=== PATIENT | female | born 1990 | race Caucasian/White ===

== ENCOUNTER 2017-08-24 22:45 | Emergency (ER) | payer OTHER ==
[~2017-08-24 22:45] MED LIST: CHLORPROMAZINE25 M2 PO; CHLORPROMAZINE50 M2; CHLORPROMAZINE50 M2 PO; DAILY MULTIPLE1 EACH PO; DIFLUCAN150 M1 PO; EMERGEN-C 1,01000 MG PO; MIRENA1 EACH; NICORELIEF2 MG PO; NUVARING VAGIN1 EACH VG; OLANZAPINE5 M2 PO; OXCARBAZEPINE300 M1; SERTRALINE HCL100 MG PO; SERTRALINE HCL50 MG PO; TRAZODONE HCL50 M1 PO; ZOLOFT100 M1 PO; ZOLOFT25 M1 PO
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
[2017-08-24] MEDS ORDERED: VICODIN 5-3001 EACH PO ×2 (23:39→23:48)
[2017-08-24 23:53] VITALS: BP 119/67
== END 2017-08-24 23:54 ==
LOC: ERH 22:45
DX: S90.31XA Contusion of right foot, initial encounter (principal); W20.8XXA Other cause of strike by thrown, projected or falling object, initial encounter; Y92.9 Unspecified place or not applicable; Y93.89 Activity, other specified
CPT/HCPCS: 73610-RT; 73630-RT

== ENCOUNTER 2017-08-27 17:37 | Inpatient (IN) | payer OTHER ==
[~2017-08-27] VITALS: Ht 157.5 cm; Wt 48.3 kg
[~2017-08-27 17:37] MED LIST changes: +VICODIN 5-3001 EACH PO
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
[2017-08-27 19:38] LABS: ABSOLUTE BASOPHIL COUNT 0 /CUMM (0.0-0.2); ABSOLUTE EOSINOPHIL COUNT 0 /CUMM (0.0-0.7); ABSOLUTE GRANULOCYTE CT 4.9 /CUMM (1.4-6.5); ABSOLUTE LYMPH COUNT 2.3 /CUMM (1.2-3.4); ABSOLUTE MONOCYTE COUNT 0.4 /CUMM (0.10-0.60); BASOPHIL % 0.4 % (0.0-2.0); EOSINOPHIL % 0.1 % (0-5); GRANULOCYTE % 63.9 % (42.2-75.2); HEMATOCRIT 34.8 % (37-47); MEAN CORPUSCULAR HGB 32.8 PG (27.0-31.0); MEAN CORPUSCULAR HGB CONC 34.8 G/DL (33.0-37.0); MEAN PLATELET VOLUME 7.2 FL (7.4-10.4); PLATELET COUNT 260 /CUMM (130-400); RBC DISTRIBUTION WIDTH 12.6 % (11.5-14.5); WHITE BLOOD CELL COUNT 7.7 /CUMM (4.8-10.8)
[2017-08-27] MEDS ORDERED: CHLORPROMAZINE25 M2 PO ×2 (20:00)
[2017-08-27] MEDS ORDERED: CHLORPROMAZINE50 M2 PO (20:03)
--- NOTE | 2017-08-27 21:14 | ED PSYCH CRISIS CONSULTATION ---
Crisis Consult Basic Assessment Date of Consult: 08/27/17 Responsible Person/Accompanied By: Patient arrived herself Insurance Authorization: Insurance #1: Insurance name: MANAV BARRIOS Phone number: Policy number: [id number] Group number: Authorization number: ED Provider: Patient's ED Provider: Moose Long MD Primary Care Physician: Patient's PCP: Patient Has No Primary Care Dr PCP's Phone Number: Current Psychiatrist: Gopi Chief Complaint: Psychiatric Related Complaint Patient's Quote: "I havent been able to sit still....Zoloft isnt working anymore " Present Illness: Patient is a 27 year old female that walked in to the emergency department from home. On arrival, patient states she is manic. Patient was recently evaluated by crisis earlier this month with final disposition of inpatient transfer admission to [facility]. Patient reports she was only inpatient for 1 day and signed herself out stating "I didnt want to be there." Also of note, patient reports substance use two days ago with use of acid and MDMA. Patient's urine toxicology screening is positive for marijuana. Patient denies alcohol use and her blood alcohol level is zero. Patient resides in an apartment with her boyfriend. Patient states mood as "okay". Patient is alert, oriented and endorses recent "rapid cycling" of her mood. Patient states "I havent been able to sit still...I need to fix myself...not be crazy depressed...not be crazy manic....the Zoloft isnt working anymore....I've been recklessly spending money....taking drugs I dont do." When asked about symptoms of psychosis ( delusions, paranoia, hallucinations), patient states she has experienced delusion of influencing weather stating "making hurricanes". She denies auditory and visual hallucinations. Patient asserts she believes her psychotropic medication needs changed. Patient believes the thorazine medication is effective but she wants to change from Zoloft SSRI. A Terrell Suicide Severity Rating Scale (C.-S.S.R.S.) was completed. Patient states "I'm trying really hard not to" when asked about suicidal thoughts. Patient indicates she has experienced suicidal thoughts in past week but denies suicidal intent or planning. Patient admits to making suicidal statement with a threat to consume several thorazine pills. Patient is assessed with risk factors / clinical status concerns of past history of lifetime suicide attempts ( overdose on aspirin in 2015), recent suicidal ideation in past week, substance abuse, highly impulsive behavior, severe anxiety, hopelessness. Protective factors identified include supportive family, identified reason for living, fear of , and belief in spirituality. Patient has history of psychiatric treatment at [facility], with an inpatient admission in December 2016. Patient has longstanding diagnosis of schizoaffective disorder since age 17 with multiple psychiatric inpatient admissions. Patient's mother has reported in past evaluations that patient has a history of cutting and suicide attempts by pill overdose with multiple past inpatient admissions. Historical reports indicates history of anxiety, mood lability, disorganized thought, paranoia, derogatory self-thoughts, and polysubstance abuse. Patient has responded well to Thorazine medication in the past and is well versed in adjusting dosage of this medication on a PRN basis based on her symptoms. Patient's outpatient mental health treatment provider is [facility]. Patient supposedly has a referral to begin [facility] IOP program. Patient sees psychiatric nurse practitioner Lashaun Willard - Patient was formerly treated at [facility] health. Patient has in the past attempted dietary changes to improve psychiatric symptoms (anti-histamine diet & avoidance of eggs, gluten, soy, yeast.) Patient is medically cleared by attending physician Dr. Pascual. She denies any medical concerns currently other than a foot injury for which she has a cast. 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 Patient has past legal history with a charge of driving under the influence per past reports. Patient's Address: [address] [place] [address] Other Phone Number: Who Do You Live With? Other (see notes) (Significant other) Family/Informants Interviewed: cannot be obtained due to (Could not reach) Allergies - Coded Allergies: aripiprazole (From ABILIFY) (Intermediate, DYSTONIC REACTION 03/26/17) Penicillins (DOESN'T REMEMBER 03/26/17) Yeast (BAD STOMACH ACHES AND MOOD SWINGS GO BAD 03/26/17) egg (STOMACH ACHES AND MOOD SWINGS GO BAD 03/26/17) haloperidol (From HALDOL) (DYSTONIC REACTION 03/26/17) soy (BAD STOMACH ACHE AND MOOD SWINGS GO BAD 03/26/17) wheat (BAD STOMACH ACHES AND MOOD SWINGS GO BAD 03/26/17) Current Medications - Scheduled Medications Chlorpromazine HCl 50 MG TABLET 1 TAB PO Q6H MENTAL HEALTH (Reported) Entered as Reported by Nuvia Yuan on 08/27/172002 Etonogestrel/Ethinyl Estradiol (Nuvaring Vaginal Ring) 0.12 MG -0.015 MG/24 HR VAG.RING 1 EACH VG Q30D CONTROL #1 (Reported) Entered as Reported by Lacey Cadet on 06/08/17 2322 Sertraline HCl 100 MG TABLET 1 TAB PO DAILY DEPRESSION #30 (Reported) Entered as Reported by Lacey Cadet on 06/08/17 2321 Scheduled PRN Medications Chlorpromazine HCl 25 MG TABLET 1 TAB PO AD PRN MENTAL HEALTH (Reported) Entered as Reported by Nuvia Yuan on 08/27/171999 Hydrocodone/Acetaminophen (Vicodin 5-300 MG Tablet) 5 MG-300 MG TABLET 1 TAB PO Q6P PRN PAIN #16 TAB Prescribed by Solitario Feldman MD on 08/24/17 Laboratory Results: Laboratory Tests 08/27/171924: Anion Gap 10, Estimated GFR > 60, BUN/Creatinine Ratio 12.9, Glucose 85, Calcium 9.0, Total Bilirubin 0.1 L, AST 17, ALT 21, Alkaline Phosphatase 32, Total Protein 6.1 L, Albumin 3.8, Globulin 2.3, Albumin/Globulin Ratio 1.7, CBC w Diff NO MAN DIFF REQ, RBC 3.70 L, MCV 94.0, MCH 32.8 H, MCHC 34.8, RDW 12.6, MPV 7.2 L, Gran % 63.9, Lymphocytes % 30.1, Monocytes % 5.5, Eosinophils % 0.1, Basophils % 0.4, Absolute Granulocytes 4.9, Absolute Lymphocytes 2.3, Absolute Monocytes 0.4, Absolute Eosinophils 0, Absolute Basophils 0, Serum Alcohol < 10.0 08/27/17 1803: Urine Opiates Screen 645, Methadone Screen < 40, Barbiturate Screen < 60, Ur Phencyclidine Scrn < 6.00, Amphetamines Screen 128, U Benzodiazepines Scrn < 85, Urine Cocaine Screen < 50, Urine Cannabis Screen > 80.00 H Past History Past Medical History Neurological: NONE EENT: NONE Cardiovascular: NONE Respiratory: NONE Gastrointestinal: NONE Hepatic: NONE Renal: NONE Musculoskeletal: NONE Psychiatric: bipolar disease, schizo affective disorder Endocrine: NONE Blood Disorders: NONE Cancer(s): NONE 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 Physical Limitations (Interventions): None assessed Psychiatric Treatment History Psych Treatment Psychiatric Treatment Yes Inpatient Treatment Yes Outpatient Treatment Yes Location of Treatment [facility] ED, [facility], [place] [facility] for Treatment Schizoaffective disorder Dates of Treatment Longstanding treatment Response to Treatment Patient responds well generally to treatment. Response is complicated by polysubstance abuse. Diagnosis by History: Schizoaffective disorder Bipolar disorder Borderline personality disorder Substance Use/Abuse History Drug Use/Abuse 1 Substances Used/Abused Yes Substance Used/Abused Marijuana First Use Unknown Last Used Today How much used/taken Patient specified "2 grams per week" How often Daily use For how long Several years Drug Use/Abuse 2 Substances Used/Abused Yes Substance Used/Abused Hallucinogens ("Acid") Last Used 2 days ago Drug Use/Abuse 3 Substances Used/Abused Yes Substance Used/Abused Other (list in comments) (MDMA) Last Used 2 days ago Substance Abuse Treatment Substance Abuse Treatment Past Substance Abuse [place] No Current Mental Status Mental Status Orientation: Person, Place, Situation Affect: Variable Speech: Soft Neuro-vegetative: Energy Increased, Sleep Disturbance Appearance Appearance- Dress/Hygiene: Patient dressed in hospital attire. No remarkable features observed Behaviors Thought Process: WNL Thought Content: Delusions Memory: WNL Insight: Poor SI/HI Risk Assessment Past Suicidal Ideation/Attempts Yes (Attempt in 2014) Current Suicidal Ideation/Att No (Recent SI, 2 days ago) Past Homicidal Ideation/Att: No Current Homicidal Ideation/Attempts No Degree of Intent: None Gravely Disabled: Poor Impulse Control, Poor Judgment Risk Factors: access to lethal means, high anxiety/distress, history of suicide atmpts, SA/MH hospitalized, substance abuse Lethality Ratin PTSD Checklist PTSD Done? patient declined ED Management Sitter: Yes Restraints: No (Pt. 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 Tiana Fierro MD Date Disposition Established: 08/27/17 Time Disposition Established: 2129 Plan for Disposition - Modality: Inpatient Psychiatry Facility: [facility] Rationale for Disposition: Crisis evaluation reviewed with Dr. Fierro. Patient will be admitted for inpatient psychiatry to achieve psychiatric stabilization due to presentation of mood dysregulation, recent suicidality, and impulsivity. Type of IP Admission: Voluntary Referrals Patient Has No Primary Care Dr (PCP/Family)
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
[2017-08-27 22:23] VITALS: BP 100/61
[2017-08-28 07:56] VITALS: BP 114/78
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
--- NOTE | 2017-08-28 15:53 | SOCIAL WORKER PROG NOTE PSYCH ---
Social Work Progress Note Progress Note Nicole approached me this afternoon looking to talk about leaving. I told her I would like to sit down with her to talk in a little while, but couldn't meet that minute. She went on to say that she didn't want to stay here and work with the doctor here. She asked if she is voluntary why she couldn't just sign out. I told her it didn't work that way and we could discuss it further in a little while. I did tell her that she could sign a 3 day paper to terminate voluntary status and I could do that with her later. She apparently ended up signing a 3 day paper with nursing a short time later. I attempted to meet with her around 3:15pm. She was in bed and sleeping. She wouldn't wake up when prompted. Nursing informed me that she needed medication earlier to calm down as she was getting agitated.
[2017-08-28 16:12] VITALS: BP 97/52
[2017-08-28 19:28] VITALS: BP 112/74
[2017-08-28 22:36] VITALS: BP 121/88
[2017-08-29 07:54] VITALS: BP 100/71
--- NOTE | 2017-08-29 09:55 | CP SOUTH PROGRESS NOTE PSYCH ---
Psych (Inpt) Progress Note Progress Note Laboratory Tests 08/29 0642 Chemistry TSH &T3 &Free T4 Intrp (0.270 - 4.20 uIU/mL) 2.600 Vital Signs Date Time Temp Pulse B/P 08/29 1241 90 125/84 08/29 0754 98.1 96 100/71 08/28 2236 101 121/88 08/28 1928 98.5 84 112/74 Mental Status Examination Patient mobilizes with a walker because of the cast on her leg. Appearance: Older than his stated age. Attitude towards examiner: Hostile, Normal psychomotor activity No abnormal or bizarre behaviors Talkative with mild pressure Labile and irritable, She says she is manic, denied thoughts of suicide today, denied homicidal ideation Denied hallucinations, denied feeling paranoid, there were no delusions during this interview. There was concern about the grandiose delusions in the emergency department. The patient seemed to be coherent and goal directed had a speech, Poor insight, Poor judgment, Alert and oriented to time, place, and person. Did not seem to have difficulty with information processing, did not seem to have difficulties with short-term memory. 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 refuses to take it, claimed it made her suicidal when she was a teenager) Start Geodon 40 mg daily starting today Continue Zoloft 50 mg daily Continue Thorazine 50 mg 4 times daily and as needed doses for agitation and Continue as needed Ativan 1 mg Group therapy, milieu therapy, and activities therapy. Reduce as needed's of Ativan to 1 mg instead of 2 mg Biopsychosocial assessment, collateral information, and aftercare planning by social work Group therapy, milieu therapy, and activities therapy.
[2017-08-29 12:41] VITALS: BP 125/84
[2017-08-29 16:38] VITALS: BP 107/76
[2017-08-29 20:26] VITALS: BP 106/74
[2017-08-29 22:27] VITALS: BP 98/67
[2017-08-30 07:13] VITALS: BP 115/57
[2017-08-30 07:34] VITALS: BP 106/68
--- NOTE | 2017-08-30 08:17 | CP SOUTH PROGRESS NOTE PSYCH ---
Psych (Inpt) Progress Note Progress Note Vital Signs: Date Time Temp Pulse Resp B/P 08/30 0734 97.9 86 106/68 08/30 0713 92 115/57 08/29 2231 97.1 82 18 98/67 Mental Status Examination: Today, the patient was not hostile, she showed normal psychomotor activity She reported that the as needed doses of Ativan or making her too sleepy and wanted a reduction to 0.5 mg as needed There were no abnormal or bizarre behaviors She was not talkative, and there was no pressure in her speech today Today, she claims that she is feeling both manic and depressed at the same time. Continues to deny thoughts of suicide and continues to deny homicidal ideation She denied hallucinations, denied feeling paranoid, there were no delusions during this interview. I did not crop picker on any psychotic signs yesterday or today seemed to be coherent and goal directed had a speech, She was alert and oriented to time, place, and person. She did not seem to have difficulty with information processing, did not seem to have difficulties with short-term memory. Assessment: A 27-year-old Single white female who was admitted for reporting that she was experiencing manic symptoms in the context of using substances including acid, MDMA, and cannabis. 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
[2017-08-30 12:07] VITALS: BP 120/77
[2017-08-30 15:57] VITALS: BP 108/56
[2017-08-30 19:55] VITALS: BP 105/65
[2017-08-31 07:55] VITALS: BP 11/62
--- NOTE | 2017-08-31 08:50 | CP SOUTH PROGRESS NOTE PSYCH ---
Psych (Inpt) Progress Note Progress Note Vital Signs Date Time Temp Pulse Resp B/P B/P Pulse O2 O2 Flow FiO2 08/31 0755 98.0 84 11/62 08/30 1955 98.7 92 105/65 08/30 1557 87 108/56 08/30 1207 73 120/77 Mental Status Examination: Nicole was alert and oriented to time, place, and person. She showed normal psychomotor activity There were no abnormal or bizarre behaviors, she was talkative, and there was no pressure in her speech today She claims that she is feeling both manic and depressed at the same time. She continues to deny thoughts of suicide and continues to deny homicidal ideation She denied hallucinations, denied feeling paranoid, there were no delusions during this interview. I did not pick up driver on any psychotic signs since her admission She was coherent and goal directed had a speech, She did not seem to have difficulty with information processing, did not seem to have difficulties with short-term memory. Assessment: A 27-year-old Single White female who was admitted for reporting that she was experiencing manic symptoms in the context of using substances including acid, MDMA, and cannabis. Although the patient has a historical diagnosis of schizoaffective disorder bipolar type, her presentation on the unit over the past few days is strongly suggestive of a severe personality disorder I am wondering whether her previous psychotic symptoms and manic symptoms where substance-induced (she has extensive/substance use history In any case the patient has been denying thoughts of suicide and has been denying thoughts of violence or homicide and is not showing any psychotic symptoms or signs, she feels ready for discharge and I believe that she is ready for discharge to continue her treatment in the intensive outpatient program setting at this point. 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
--- NOTE | 2017-08-31 11:22 | SOCIAL WORKER PROG NOTE PSYCH ---
Social Work Progress Note Progress Note Nicole was in her room at 11am. Got up when prompted to meet. I explained why her and I didn't see eachother on Thursday. I asked how she was doing? She said okay. She went on to say that the doctor told her she could leave today after talking with me. She shared that she was here for a med change. She is happy that she has now been placed on Geodon. She reports she is safe to go home. I offered to call her boyfriend Carlos with her to discuss. She said that was fine. We called together. Carlos had no particular safety concerns other than he is hoping she is stable with her mood. She shared that she was feeling better now that her medication was changed and she will start IOP at [facility] on Thursday to work on coping skills. He told her to call him when she was ready to be picked up. I asked her what prompted the conversation about hurting herself last night on the unit? She said she got angry with nursing. She said no one had told her it was an issue to have the nicotine gum out of her mouth while she was sleeping. She said she got angry and that prompted the suicidal comment. She said she gets angry with herself and that's what she ends up saying. Talked about how hopefully IOP will help her find alternatives to self harm or using marijuana to calm down. Nicole was calm and appropriate during our conversation. Denies current SI. She signed a release for [facility]. Called [facility] and left a message with Joy to confirm appts. Received a message back indicating that Nicole can come for IOP orientation on Thursday at 2pm and see Ruth Rivera APRN 09/14 at 3pm.
[2017-08-31] MEDS ORDERED: SERTRALINE HCL50 MG PO (12:00)
[2017-08-31] MEDS ORDERED: ZIPRASIDONE HCL40 M1 PO (12:00)
--- NOTE | 2017-08-31 12:06 | Patient Discharge Instructions ---
Psych Discharge Inst General Discharge Information Reason for Admission: She claims she was manic. However she was using hallucinogens, MDMA, and cannabis Psy Discharge Primary Diag+ ??? by history Scizoaffec Other specified Personali Psy Discharge Secondary Diag+ Hallucinogen use disorder cannabis use disorder Summary Tests/Major Procedures Lab Cholesterol 94 MG/DL 08/27/171924 HDL Cholesterol 44 mg/dL 08/27/171924 Hemoglobin A1c 5.1 % 08/27/171924 LDL Cholesterol, Calc 29 mg/dL L 08/27/171924 Triglycerides 107 mg/dL 08/27/171924 Studies Pending at DC: None Patient Instructions Contact Information Your Psychiatrist on [facility] was Jacques Sigala MD * If you are experiencing an emergency related to this hospitalization, please call [phone] to contact the treating psychiatrist or the psychiatrist-on- call. * To Request a copy of your medical records, please contact the Medical Records Department at [phone]. * To request results of studies pending at the time of discharge, please call [phone]. * Continue your Medications until directed to stop by your Healthcare provider. General Medication Information Please continue to take your new medications and your continued home medications , unless otherwise indicated on your discharge medication list, or unless directed by your MD or DIRECTOR [employer]ELOPMENT to stop them. Special Instructions Diet Regular Activity Normal - Tobacco Use Treatment Offered Post DC Medications Offered: Refused Tob Medication Tx Post DC Tobacco Treatment Plan: Refused Tobacco Tx Pgm - EtOH/Drug Use D/O Treatment Offered Post DC Medications Offered: Med Not Indicated for D/O Post DC EtOH/SubAbuse [place] Plan: Other SubAbuse/Dual Pgm Metabolic Screening Patient on a neuroleptic(s) . Enter below results for Hemoglobin A1C, and lipid panel if obtained during the last 365 days. BMI: 20.10 Blood Pressure: Laboratory Results From [facility] (If applicable): Lab Cholesterol 94 MG/DL 08/27/171924 HDL Cholesterol 44 mg/dL 08/27/171924 Hemoglobin A1c 5.1 % 08/27/171924 LDL Cholesterol, Calc 29 mg/dL L 08/27/171924 Triglycerides 107 mg/dL 08/27/171924 Advance Directives Does the Patient have Medical Advance Directives No/Refused further info Does Pt have Psychiatric Advance Directives? No/Refused further info Does Patient have a Designated Surrogate Decision Maker: No Information About Psychiatric Advance Directives Provided? Refused Discharge Plan Post Hospital Treatment Plan: [facility] Dual Track IOP
--- NOTE | 2017-08-31 12:06 | DISCHARGE SUMMARY REPORT-PSYCH ---
Visit Information Visit Dates/Diagnosis' Admission Date: 08/27/17 Discharge Date: 08/31/17 Reason for Admission: She claims she was manic. However she was using hallucinogens, MDMA, and cannabis Psy Discharge Primary Diag: ??? by history Scizoaffec Other specified Personali Psy Discharge Secondary Diag: Hallucinogen use disorder cannabis use disorder Hospital Course Significant Lab Findings: Lab Urine Cannabis Screen > 80.00 NG/ML H 08/27/17 1803 Course Complications: And did not have any complications while she was on the inpatient psychiatric unit. Consultations: Patient had a history and physical examination while she was on the inpatient psychiatric unit. Please refer to the patient's electronic health record for the details of the H&P. Allergies: Coded Allergies: aripiprazole (From ABILIFY) (Intermediate, DYSTONIC REACTION 03/26/17) Penicillins (DOESN'T REMEMBER 03/26/17) Yeast (BAD STOMACH ACHES AND MOOD SWINGS GO BAD 03/26/17) egg (STOMACH ACHES AND MOOD SWINGS GO BAD 03/26/17) haloperidol (From HALDOL) (DYSTONIC REACTION 03/26/17) soy (BAD STOMACH ACHE AND MOOD SWINGS GO BAD 03/26/17) wheat (BAD STOMACH ACHES AND MOOD SWINGS GO BAD 03/26/17) Hospital Course/TX Response: 08/28/2017: Impression and Plan: 27-year-old single white female who was admitted 4 reporting that she was experiencing manic symptoms in the context of using substances including acid, MDMA, and cannabis DSM 5 Diagnosis(es): By history only schizoaffective disorder bipolar type Hallucinogen use disorder Cannabis use disorder Rule out substance-induced psychosis and Alcohol use disorder, in remission 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 08/29/2017: D/C lithium (pt. refuses to take it, claimed it made her suicidal when she was a teenager) Start Geodon 40 mg daily starting today Continue Zoloft 50 mg daily Continue Thorazine 50 mg 4 times daily and as needed doses for agitation and Continue as needed Ativan 1 mg 08/30/2017: Reduce as needed Ativan to 0.5 mg q 4hours PRN anxiety/insomnia Geodon 40 mg daily starting today Continue Zoloft 50 mg daily (the patient declined to accept recommendations to stop it) Continue Thorazine 50 mg 4 times daily and as needed doses for agitation and 08/31/2017: Mental Status Examination: Nicole was alert and oriented to time, place, and person. She showed normal psychomotor activity There were no abnormal or bizarre behaviors, she was talkative, and there was no pressure in her speech today She claims that she is feeling both manic and depressed at the same time. She continues to deny thoughts of suicide and continues to deny homicidal ideation She denied hallucinations, denied feeling paranoid, there were no delusions during this interview. I did not greens picker on any psychotic signs since her admission She was coherent and goal directed had a speech, She did not seem to have difficulty with information processing, did not seem to have difficulties with short-term memory. Assessment: A 27-year-old Single White female who was admitted for reporting that she was experiencing manic symptoms in the context of using substances including acid, MDMA, and cannabis. Although the patient has a historical diagnosis of schizoaffective disorder bipolar type, her presentation on the unit over the past few days is strongly suggestive of a severe personality disorder I am wondering whether her previous psychotic symptoms and manic symptoms where substance-induced (she has extensive/substance use history In any case the patient has been denying thoughts of suicide and has been denying thoughts of violence or homicide and is not showing any psychotic symptoms or signs, she feels ready for discharge and I believe that she is ready for discharge to continue her treatment in the intensive outpatient program setting at this point. 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, strong borderline traits Treatment Plan Update: Patient may be discharged home to continue intensive outpatient treatment with [facility] starting Thursday Discharge HBIPS - Tobacco Use Treatment Offered Post DC Medications Offered: Refused Tob Medication Tx Post DC Tobacco Treatment Plan: Refused Tobacco Tx Pgm - EtOH/Drug Use D/O Treatment Offered Post DC Medications Offered: Med Not Indicated for D/O Post DC EtOH/SubAbuse TX Plan: Other SubAbuse/Dual Pgm Metabolic Screening - Screen if on a Neuroleptic Medication - Metabolic screening should include: - Blood Pressure, BMI, Glucose or Hgb A1c, & a - Lipid profile from within the past 365 days. Metabolic Screening Patient on a neuroleptic(s) . Enter below results for Hemoglobin A1C, and lipid panel if obtained during the last 365 days. BMI: 20.10 Blood Pressure: Laboratory Results From [facility] (If applicable): Lab Cholesterol 94 MG/DL 08/27/171924 HDL Cholesterol 44 mg/dL 08/27/171924 Hemoglobin A1c 5.1 % 08/27/171924 LDL Cholesterol, Calc 29 mg/dL L 08/27/171924 Triglycerides 107 mg/dL 08/27/171924 Discharge Instructions General Discharge Information Multiple Neuroleptics: The patient may be tapered off Thorazine after few weeks on Geodon which was just started Discharge Diet Regular Discharge Activity Normal DC Disposition: Home Referrals Ordered Referrals CARE 09/02/17 [address] [place] [address] [facility]ly [facility] IOP orientation 09/02/17 2pm [address] [place], [place] [address] Appt. with Ruth Rivera PERSONAL INJURY PARALEGAL 09/14/17 3pm. Prescriptions Stop taking the following medications: Sertraline HCl (Sertraline HCl) 100 MG TABLET ORAL DAILY Qty = 30 Hydrocodone/Acetaminophen (Vicodin 5-300 MG Tablet) 5 MG-300 MG TABLET ORAL EVERY SIX HOURS NEEDED as needed for PAIN Qty = 16 Chlorpromazine HCl (Chlorpromazine HCl) 25 MG TABLET ORAL As Directed as needed for MENTAL HEALTH Continue taking these medications: Etonogestrel/Ethinyl Estradiol (Nuvaring Vaginal Ring) 0.12 MG -0.015 MG/24 HR VAG.RING 1 Each VAGINAL ONCE A MONTH Qty = 1 Instructions: use for 3 weeks, skip for 1 week Chlorpromazine HCl (Chlorpromazine HCl) 50 MG TABLET 1 Tablet ORAL Q6H Start taking the following new medications: Sertraline HCl (Sertraline HCl) 50 MG TABLET 50 Milligram ORAL DAILY Qty = 14 No Refills Ziprasidone HCl (Ziprasidone HCl) 40 MG CAPSULE 40 Milligram ORAL TWICE DAILY Qty = 28 No Refills Studies Pending at Discharge None Copies To: [facility]
[2017-08-31 12:12] VITALS: BP 90/55
--- NOTE | 2017-08-31 15:46 | SOCIAL WORKER PROG NOTE PSYCH ---
Social Work Progress Note Faxed Referral(s) Referred To: [facility] Transition of Care Documents sent: Health Summary Faxed to: Zach Hamilton Fax #: [phone] Faxed by: Lalitha Beatty Date faxed: 08/31/17 Time Faxed: [phone]
--- NOTE | 2017-08-31 17:04 | SOCIAL WORKER PROG NOTE PSYCH ---
Social Work Progress Note Progress Note Determination Status: PENDED The services requested require additional review. You will be contacted regarding the status of this request if further information is needed. An authorization decision will be made within the required timeframes and details of that decision may be found under the member's authorization history. Member Name Member ID Member Subscriber Name Subscriber ID RANDOLPH ALVAREZ [id number] 1990 RANDOLPH ALVAREZ [id number] Pended Authorization # Client Authorization # Type of Request [id number] CONCURRENT Date of Admission/ Start of Services Requested From Submission Date 08/27/2017 08/30/2017 08/31/2017 Level of Service Type of Service Level of Care Type of Care INPATIENT/HLOC [facility] Health Inpatient Inpatient [facility] - Inpatient Hospital Reason Code P76 Provider Name & Address Provider ID Provider Alternate ID NPI # for Authorization SAMAN VEGA [id number] N/A [address] [facility] [id number] Message [id number] Attached Documents There are no documents attached with this Authorization Request Document Title Document Description
== END 2017-08-31 14:55 | DRG 750 ==
LOC: ERH 17:37 → ERHI 21:20 → CP SOUTH 21:20 → ENTRNSPT 21:48 → EDTRNSPTSTS 21:59 → CP SOUTH 22:12 → CMPTRNSPT 22:15 → CP SOUTH 08-28 10:39
PROVIDERS: Emergency Medicine
DX: F25.9 Schizoaffective disorder, unspecified (principal); F60.89 Other specific personality disorders; F16.90 Hallucinogen use, unspecified, uncomplicated; F12.90 Cannabis use, unspecified, uncomplicated
CPT/HCPCS: 36415; 80307; 93005; 93010; G0480